=== PATIENT | male | born 1980 | race Caucasian/White ===

== ENCOUNTER 2020-04-11 02:39 | Outpatient (CLI) | payer MEDICAID, SELFPAY | END 2020-04-11 02:59 | PROVIDERS: PCP Family Medicine; Visit Provider Family Medicine | DX: Z79.899 Other long term (current) drug therapy (principal); Z13.6 Encounter for screening for cardiovascular disorders | CPT/HCPCS: 93005; 93010 ==

== ENCOUNTER 2022-09-05 17:14 | Emergency (ER) | payer MEDICAID, SELFPAY ==
--- NOTE | 2022-09-05 17:15 | DI.CT_ITS ---
Exam(s) CT CHEST/ABD/PEL WO CT THORACIC LUMBAR SPINE REC EXAM: CT CHEST/ABD/PEL WO CLINICAL HISTORY: left sided chest and upper abdomen pain s/p fall TECHNIQUE: Imaging Protocol: Axial computed tomography images with coronal and sagittal reformatted images were created and reviewed COMPARISON: None. FINDINGS: The examination is limited due to patient motion artifact. CHEST: Tracheobronchial tree: Patent where visualized. Pulmonary parenchyma: No consolidation or dominant measurable mass. No architectural distortion. Ther e are patchy ground-glass opacities seen in the left upper lobe which likely reflect contusions. Mediastinum and Bela: No dominant adenopathy or fluid collection. The esophagus is unremarkable. Thyroid gland: Unremarkable. Pleura: No effusion or pneumothorax. Heart: The heart is not dilated. No coronary artery calcifications are seen. No pericardial effusion. Aorta: Thoracic aorta non-dilated. Lymph nodes: Within normal limits. Bones:Within normal limits for the patient's age. There are nondisplaced fractures involving the pos terior medial aspects of the left 1st through 4th ribs. There also nondisplaced fractures involving the left transverse processes of the 3rd through 6th thoracic vertebra. Soft tissues: Unremarkable. CT thoracic spine recons: There is a deformity of the anterior aspect of the T8 vertebral body suspic ious for a minimally depressed compression fracture. ABDOMEN: Liver: Normal density. No measurable mass. Gallbladder and Biliary Tract: There is cholelithiasis. No biliary ductal dilatation. Pancreas: Normal density, no abnormal calcifications or inflammatory process. Spleen: Normal. Adrenals: No masses seen. Kidneys: Normal size, contour and axis. No radiodense stones or obstructive uropathy. No masses seen. Abdominal Aorta: Abdominal portion non-dilated. Bowel: No obstruction or bowel wall thickening. No evidence of appendicitis. Peritoneal Cavity: No ascites, collection or mesenteric inflammatory response. No free air. Lymph Nodes: Within normal limits. Bones: Within normal limits for the patient's age. Soft Tissues: Unremarkable. PELVIS: Bladder: Symmetric distention, no gross wall thickening. Reproductive Organs: Unremarkable as visualized. Lymph Nodes: Within normal limits. Bones: Within normal limits for the patient's age. CT lumbar spine recons: There is mild deformity of the anterior aspect of the L3 vertebral body suspi cious for nondisplaced fracture. This is best appreciated on the sagittal views of the lumbar spine. Similar findings are also seen in the anterior cortex of the L1 vertebral body. IMPRESSION: 1. Ground-glass opacities in the left upper lobe likely reflecting pulmonary contusions. 2. Nondisplaced fractures involving the posterior medial aspects of the left first through 4th ribs. 3. Nondisplaced left T3 through T6 transverse process fractures. 4. There are deformities seen at the anterior superior aspects of the T8, L1 and L3 vertebral body díaz spicious for fractures. No spinal compression is seen. 5. No acute abdominal process. 6. Findings were discussed with Dr. Sal at 8:10 a.m. on 09/06/2022. RADIATION DOSE DELIVERED: Total DLP DATA REPOSITORY: All CT scans at this facility are submitted to the National Radiology Data Registry (NRDR) Dose Index Registry (DIR) with the [employer] (ACR). RADIATION OPTIMIZATION: All CT scans at this facility use at least one of these dose optimization te chniques: automated exposure control; mA and/or kV adjustment per patient size (includes targeted exa ms where dose is matched to clinical indication); or iterative reconstruction.
--- NOTE | 2022-09-05 17:15 | DI.CT_ITS ---
Exam(s) CT HEAD CERVICAL SPINE WO EXAM: CT HEAD CERVICAL SPINE WO CLINICAL HISTORY: fall 40 feet, pain. TECHNIQUE: Imaging Protocol: Axial computed tomography images with coronal and sagittal reformatted images were created and reviewed COMPARISON: No exams were available for comparison FINDINGS: CT Head: Ventricles and Extra axial spaces: Normal in size and morphology for the patient's age. Hemorrhage: None. Cerebral parenchyma: Normal. Midline shift: None. Brainstem/Cerebellum: Normal. Calvarium: Normal. Visualized Paranasal sinuses/Mastoids: Clear. Soft Tissues: Unremarkable. CT Cervical Spine: Bones: No acute fracture or subluxation. Mildly displaced fractures are seen at the posterior aspects of the 1st, 2nd and 3rd left ribs. There also fractures involving the left transverse processes of the 3rd, 4th and 5th thoracic vertebra. Soft Tissues: Unremarkable. Lung Apices: There is a small ground-glass opacity in the left upper lobe. No apical pneumothorax. IMPRESSION: 1. No acute intracranial process. 2. No acute fracture or subluxation in the cervical spine. 3. There are fractures involving the posterior 1st through 3rd ribs and the 3rd through 5th left augustine sverse processes of the thoracic vertebra. 4. Ground-glass opacity in the left upper lobe which may represent a contusion. RADIATION DOSE DELIVERED: 973.91mGy.cm Total DLP DATA REPOSITORY: All CT scans at this facility are submitted to the National Radiology Data Registry (NRDR) Dose Index Registry (DIR) with the [employer] (ACR). RADIATION OPTIMIZATION: All CT scans at this facility use at least one of these dose optimization te chniques: automated exposure control; mA and/or kV adjustment per patient size (includes targeted exa ms where dose is matched to clinical indication); or iterative reconstruction.
[2022-09-05 17:18] VITALS: BP 162/120; PULSE 120; RESP 16; TEMP 37.6; O2SAT 96
--- NOTE | 2022-09-05 17:30 | DI.RAD_ITS ---
Exam(s) XR ANKLE RT COMPLETE EXAM: XR ANKLE RT COMPLETE CLINICAL HISTORY: pain s/p fall. TECHNIQUE: 2D digital imaging was performed of the right ankle. Three images were obtained. AP, la teral and oblique views were obtained. COMPARISON: No exams were available for comparison FINDINGS: BONES: There is an acute nondisplaced oblique fracture through the distal tibial diaphysis. No bony destructive lesion is seen. JOINTS: The ankle mortise is normally aligned. SOFT TISSUE: Normal. IMPRESSION: Nondisplaced distal tibial diaphyseal fracture. DATA REPOSITORY: RADIATION DOSE DELIVERED:
--- NOTE | 2022-09-05 17:30 | DI.RAD_ITS ---
Exam(s) XR SHOULDER LT COMPLETE 2+V EXAM: XR SHOULDER LT COMPLETE 2+V CLINICAL HISTORY: pain s/p fall. TECHNIQUE: 2D digital imaging was performed of the left shoulder. Four images were obtained. AP, G rashey, Y-view and axillary views were obtained. COMPARISON: No exams were available for comparison FINDINGS: BONES: The fractures of the left 2nd and 3rd ribs are seen. The patient's known thoracic transverse process and left rib fractures are best appreciated on the CT scan of the abdomen and pelvis from the same day. No bony destructive lesion is seen. Note is made of an os acromiale which is a normal kassie iant. JOINTS: No dislocation present. SOFT TISSUE: Normal. IMPRESSION: 1. No acute fracture of the left shoulder. 2. Left 2nd and 3rd rib fractures are identified on the plain films. DATA REPOSITORY: RADIATION DOSE DELIVERED:
--- NOTE | 2022-09-05 17:32 | ED.GENADUL_ITS ---
Discharge Plan Disposition Patient Disposition: HOME Condition: Stable Discharge Details Clinical Impression: Blunt trauma of multiple sites of trunk, Blunt head trauma, Closed fracture of transverse process of thoracic vertebra, Left rib fracture, Closed right tibial fracture Primary Care Provider: Shayla Yee ED Provider: Rico Martell Home Meds and New Rx's Prescriptions: New oxycodone 5 mg tablet 5 mg PO Q6H PRNQty: 10 0RF Discharge Instructions Instructions: Leg Fracture (ED) Additional Instructions: you were found to have small breaks in the upper back and also left sided rib fractures that will heal on their own you have a broken bone in the left leg, you need to keep weight off the leg and when sitting or laying down keep it elevated call orthopedics tomorrow to arrange follow up if you feel more ill, have severe worsening pain or new pain such as chest pain or abodmen pain return to the emergency department you can take tylenol and ibuprofen as well, follow dosing instructions on packaging Referrals: Abelino Howard MD [ [facility] STAFF PHYSICIAN] - Medical Decision Making 42 yo male who denies chronic medical problems comes in with complaints of multiple sites of body after a fall 4 days ago. 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 Denies loc and did not seek evaluation at that time. He comes in because he states he still has back, left shoulder and right ankle pain. He does state he has dislocated his left shoulder in the past and after his fall felt it was dislocated and his significant other popped it back in. He arrives caox4 gcs of 15. He has bruising on the left anterior chest with tenderness, left anterior shoulder tenderness though still has full rom, no distal arm tenderness or swelling and normal sensation and pulses. No pain or tenderness in the right arm or left leg. Does have some lateral malleolus tenderness in the left ankle with full rom and normal sensation and pulses. He has mild luq tenderness with deep palpation, no guarding or rebound. Has mid T and L spine tenderness, no visible or palpable deformities. No signs of trauma to the head, no c spine tenderness. Given the mechanism and locations of pain will obtain ct head, c spine, ct chest/abd/pelvis with t and l spine recons in addition to left shoulder and right ankle xrays ct head and c spine negative, has 1st through 4th left rib fractures, no ptx, and minimal left sided t3-t5 transverse process fractures. He does have a nondisplaced distal tibia fracture. He remains stable, intact distal sensation and pulses. Reviewed the case with audio visual collections coordinator orthopedist Dr. Howard and given it is nondisplaced can be treated with short leg posterior splint which I applied, and nonweight bearing and f/u with him next week. He remains stable and is comfortable with d/c, advised to f/u with ortho and return precautions given Differential Diagnosis Differential Diagnosis: fracture, contusion Imaging Data Radiologic Study: Attestation: I personally reviewed and interpreted this imaging study as follows: Imaging: X-Ray My impression: PROCEDURE INFORMATION: Exam: XR Right Ankle Exam date and time: 09/05/2022 5:47 PM Age: 42 years old Clinical indication: Injury or trauma; Other: Pain S/P fall 40 ft TECHNIQUE: Imaging protocol: Radiologic exam of the Right ankle. Views: 3 or more views. COMPARISON: No relevant prior studies available. FINDINGS: Bones/joints: Oblique fracture through the distal tibial diaphysis without displacement Soft tissues: Normal. IMPRESSION: Oblique distal tibial diaphysis fracture Radiologic Study #2: Attestation: I personally reviewed and interpreted this imaging study as follows: Imaging: X-Ray My impression: no acute findings shoulder xray Radiologic Study #3: Attestation: I personally reviewed and interpreted this imaging study as follows: Imaging: CT Scan Radiologist's impression: IMPRESSION: No acute intracranial abnormality. IMPRESSION: No acute cervical fracture Left 1st through 4th rib fractures without pneumothorax. Question minimal left upper lobe pulmonary contusion Radiologic Study #4: Attestation: I personally reviewed and interpreted this imaging study as follows: Imaging: CT Scan Radiologist's impression: PROCEDURE INFORMATION: Exam: CT Chest Without Contrast; Diagnostic Exam date and time: 09/05/2022 6:09 PM Age: 42 years old Clinical indication: Injury or trauma; Generalized; Blunt trauma (contusions or hematomas); Patient HX: Left sided chest and upper abdomen pain S/P fall TECHNIQUE: Imaging protocol: Diagnostic computed tomography of the chest without contrast. 3D rendering (Not supervised by radiologist): MIP and/or 3D reconstructed images were created by the technologist. COMPARISON: CT HEAD CERVICAL SPINE WO 09/05/2022 6:00 PM FINDINGS: Lungs: Minimal nodular densities and minimal ground-glass density in the left upper lobe No consolidation. No masses. Pleural spaces: Unremarkable. No pneumothorax. No pleural effusion. Heart: Unremarkable. No cardiomegaly. No pericardial effusion. Lymph nodes: Unremarkable. No enlarged lymph nodes. Vasculature: Unremarkable. No aortic aneurysm. Bones/joints: Left posterior 1st through 4th rib fractures Soft tissues: Unremarkable. IMPRESSION: Left 1st through 4th rib fractures without pneumothorax. IMPRESSION: No acute findings. Gallstones versus gallbladder wall calcifications Radiologic Study #5: Attestation: I personally reviewed and interpreted this imaging study as follows: Imaging: CT Scan Radiologist's impression: PROCEDURE INFORMATION: Exam: CT Thoracic Spine Without Contrast Exam date and time: 09/05/2022 6:09 PM Age: 42 years old Clinical indication: Injury or trauma; Fall; Blunt trauma (contusions or hematomas) TECHNIQUE: Imaging protocol: Computed tomography of the thoracic spine without contrast. Radiation optimization: All CT scans at this facility use at least one of these dose optimization techniques: automated exposure control; mA and/or kV adjustment per patient size (includes targeted exams where dose is matched to clinical indication); or iterative reconstruction. COMPARISON: CT HEAD CERVICAL SPINE WO 09/05/2022 6:00 PM FINDINGS: Bones/joints: Minimal fractures of the left T3 -T5 transverse processes. Normal alignment. No significant disc protrusion. No severe spinal canal stenosis. Soft tissues: Unremarkable. IMPRESSION: Minimal left-sided T3 through T5 transverse process fractures Left 1st through 4th posterior rib fractures IMPRESSION: No acute lumbar fracture Radiologic Study #6: Attestation: I personally reviewed and interpreted this imaging study as follows: Imaging: X-Ray Radiologist's impression: distal tibia fracture on tib/fib xray HPI General Date/Time Provider Initiated Documentation: 09/05/22 17:17 . Limitations to Documentation: no limitations . Information obtained by: patient . History of Present Illness 42 year old M presents to the emergency department with the chief complaint of fall out of a tree, left shoulder pain, described as moderate, Patient reports no radiation. Patient started experiencing this day(s) (4) and it has been constant. No relieving factors improve symptom(s), No exacerbating factors reported . Patient did receive the following treatments prior to arrival, none Related Data Home Medications Medication Instructions Recorded Confirmed oxycodone 5 mg tablet 5 mg PO Q6H PRN #10 tabs 09/05/22 Previous Rx's Medication Instructions Recorded oxycodone 5 mg tablet 5 mg PO Q6H PRN #10 tabs 09/05/22 Allergies Allergy/AdvReac Type Severity Reaction Status Date / Time No Known Allergies Allergy Unverified 09/05/22 17:39 General Stated Complaint: Trauma ELIZABETH: 3 Review of Systems All systems reviewed & are unremarkable except as noted in HPI and below Constitutional Constitutional: Denies chills, Denies fever(s) and Denies weakness Eyes Eyes: Denies loss of vision Cardiovascular Cardiovascular: Denies dyspnea Respiratory Respiratory: Denies cough and Denies dyspnea Gastrointestinal Gastrointestinal: Denies nausea and Denies vomiting Musculoskeletal Musculoskeletal: Denies joint swelling Neurologic Neurologic: Denies loss of vision and Denies weakness PFSH All Active Problems (Updated 09/05/22 @ 20:15 by Rico Martell MD) Blunt trauma of multiple sites of trunk (Acute) Blunt head trauma (Acute) Closed fracture of transverse process of thoracic vertebra (Acute) Left rib fracture (Acute) Closed right tibial fracture (Acute) Social History Smoking/Tobacco Use Status: Current every day Tobacco Type: e-cigarettes Smoking risk assessment performed?: Yes Alcohol Intake: current Alcohol Intake frequency: a few times a month Alcohol type: beer Drug use: Occasionally Substance use type: marijuana Do you feel safe at home: Yes Do you feel safe in your relationship?: Yes Exam Const General: no acute distress Orientation: alert HENMT Head: normal to inspection Ears: external ears normal General nose exam: external nose normal Mouth: moist mucous membranes Eyes General: appearance normal, both eyes and all related structures Neck Neck: normal visual inspection Resp Effort & Inspection: normal respiratory effort and able to speak in complete sentences Cardio Rate: regular rate GI Palpation: soft and tender Skin General skin exam: no rashes or lesions noted Neuro General: patient alert and patient oriented x3 Extrem General: normal to inspection, full ROM and capillary refill normal Psych Mental Status: mental status grossly normal Course Vital Signs Vital signs: Vital Signs Temperature 37.6 C 09/05/22 17:18 Pulse 120 H 09/05/22 17:18 Respiratory Rate 16 09/05/22 17:18 Blood Pressure 162/120 H 09/05/22 17:18 Pulse Oximetry 96 09/05/22 17:18 Temperature 37.6 C 09/05/22 17:18 Temperature Source Skin 09/05/22 17:18 Pulse 120 H 09/05/22 17:18 Respiratory Rate 16 09/05/22 17:18 Blood Pressure 162/120 H 09/05/22 17:18 Blood Pressure Position Sitting 09/05/22 17:18 Pulse Oximetry 96 09/05/22 17:18 Oxygen Delivery Method Room Air 09/05/22 17:18 Oxygen Flow Rate 0 09/05/22 17:18 Comment 09/05/22 17:18
--- NOTE | 2022-09-05 18:05 | DI.VRAD_ITS ---
PROCEDURE INFORMATION: Exam: XR Right Ankle Exam date and time: 09/05/2022 5:47 PM Age: 42 years old Clinical indication: Injury or trauma; Other: Pain S/P fall 40 ft TECHNIQUE: Imaging protocol: Radiologic exam of the Right ankle. Views: 3 or more views. COMPARISON: No relevant prior studies available. FINDINGS: Bones/joints: Oblique fracture through the distal tibial diaphysis without displacement Soft tissues: Normal. IMPRESSION: Oblique distal tibial diaphysis fracture Dictated and Authenticated by: Moiz Briggs MD. Ordering:RAMESH Gómez MD
--- NOTE | 2022-09-05 18:05 | DI.VRAD_ITS ---
PROCEDURE INFORMATION: Exam: XR Left Shoulder Exam date and time: 09/05/2022 5:50 PM Age: 42 years old Clinical indication: Injury or trauma; Other: Pain S/P fall 40 ft TECHNIQUE: Imaging protocol: Radiologic exam of the Left shoulder. Views: 2 or more views. COMPARISON: No relevant prior studies available. FINDINGS: Bones/joints: Chronic deformity of the left clavicle. No acute fracture or dislocation Soft tissues: Normal. IMPRESSION: No acute findings. Dictated and Authenticated by: Moiz Briggs MD. Ordering:RAMESH Gómez MD
--- NOTE | 2022-09-05 18:22 | DI.VRAD_ITS ---
PROCEDURE INFORMATION: Exam: CT Head Without Contrast Exam date and time: 09/05/2022 6:00 PM Age: 42 years old Clinical indication: Injury or trauma; Other: Fall 40 feet, pain TECHNIQUE: Imaging protocol: Computed tomography of the head without contrast. COMPARISON: No relevant prior studies available. FINDINGS: Brain: Mild volume loss X. No hemorrhage. Unremarkable white matter. No mass effect. Cerebral ventricles: No ventriculomegaly. Paranasal sinuses: Visualized sinuses are unremarkable. No fluid levels. Mastoid air cells: Visualized mastoid air cells are well aerated. Bones/joints: Unremarkable. No acute fracture. Soft tissues: Unremarkable. IMPRESSION: No acute intracranial abnormality. PROCEDURE INFORMATION: Exam: CT Cervical Spine Without Contrast Exam date and time: 09/05/2022 6:00 PM Age: 42 years old Clinical indication: Injury or trauma; Other: Fall 40 feet, pain TECHNIQUE: Imaging protocol: Computed tomography of the cervical spine without contrast. COMPARISON: CR XR SHOULDER LT COMPLETE 2+V 09/05/2022 5:50 PM FINDINGS: Bones/joints: No acute cervical fracture. Loss of cervical lordosis is presumably on a degenerative basis.No significant disc protrusion. No severe spinal canal stenosis. Left 1st through 4th rib fractures Lungs: Question minimal ground-glass opacity in the left upper lobe Soft tissues: Unremarkable. IMPRESSION: No acute cervical fracture Left 1st through 4th rib fractures without pneumothorax. Question minimal left upper lobe pulmonary contusion Dictated and Authenticated by: Moiz Briggs MD. Ordering:RAMESH Gómez MD
--- NOTE | 2022-09-05 18:25 | DI.VRAD_ITS ---
PROCEDURE INFORMATION: Exam: CT Chest Without Contrast; Diagnostic Exam date and time: 09/05/2022 6:09 PM Age: 42 years old Clinical indication: Injury or trauma; Generalized; Blunt trauma (contusions or hematomas); Patient HX: Left sided chest and upper abdomen pain S/P fall TECHNIQUE: Imaging protocol: Diagnostic computed tomography of the chest without contrast. 3D rendering (Not supervised by radiologist): MIP and/or 3D reconstructed images were created by the technologist. COMPARISON: CT HEAD CERVICAL SPINE WO 09/05/2022 6:00 PM FINDINGS: Lungs: Minimal nodular densities and minimal ground-glass density in the left upper lobe No consolidation. No masses. Pleural spaces: Unremarkable. No pneumothorax. No pleural effusion. Heart: Unremarkable. No cardiomegaly. No pericardial effusion. Lymph nodes: Unremarkable. No enlarged lymph nodes. Vasculature: Unremarkable. No aortic aneurysm. Bones/joints: Left posterior 1st through 4th rib fractures Soft tissues: Unremarkable. IMPRESSION: Left 1st through 4th rib fractures without pneumothorax. Minimal ground-glass and nodular densities in the left upper lobe which may be infectious/inflammatory. Minimal contusion not excluded. Consider short-term follow-up CT scan to assess for resolution PROCEDURE INFORMATION: Exam: CT Abdomen And Pelvis Without Contrast Exam date and time: 09/05/2022 6:09 PM Age: 42 years old Clinical indication: Injury or trauma; Generalized; Blunt trauma (contusions or hematomas); Patient HX: Left sided chest and upper abdomen pain S/P fall TECHNIQUE: Imaging protocol: Computed tomography of the abdomen and pelvis without contrast. 3D rendering (Not supervised by radiologist): MIP and/or 3D reconstructed images were created by the technologist. COMPARISON: No relevant prior studies available. FINDINGS: Liver: Normal. No mass. Gallbladder and bile ducts: Gallbladder wall calcifications versus calcified gallstones. No ductal dilation. Pancreas: Normal. No ductal dilation. Spleen: Normal. No splenomegaly. Adrenal glands: Normal. No mass. Kidneys and ureters: Normal. No hydronephrosis. Stomach and bowel: Unremarkable. No obstruction. No mucosal thickening. Appendix: No evidence of appendicitis. Intraperitoneal space: Unremarkable. No free air. No significant fluid collection. Vasculature: Unremarkable. No abdominal aortic aneurysm. Lymph nodes: Unremarkable. No enlarged lymph nodes. Urinary bladder: Unremarkable as visualized. Reproductive: Unremarkable as visualized. Bones/joints: Degenerative changes at the lumbosacral junction No acute fracture. Soft tissues: Unremarkable. IMPRESSION: No acute findings. Gallstones versus gallbladder wall calcifications Dictated and Authenticated by: Moiz Briggs MD. Ordering:RAMESH Gómez MD
--- NOTE | 2022-09-05 18:49 | DI.VRAD_ITS ---
PROCEDURE INFORMATION: Exam: CT Thoracic Spine Without Contrast Exam date and time: 09/05/2022 6:09 PM Age: 42 years old Clinical indication: Injury or trauma; Fall; Blunt trauma (contusions or hematomas) TECHNIQUE: Imaging protocol: Computed tomography of the thoracic spine without contrast. Radiation optimization: All CT scans at this facility use at least one of these dose optimization techniques: automated exposure control; mA and/or kV adjustment per patient size (includes targeted exams where dose is matched to clinical indication); or iterative reconstruction. COMPARISON: CT HEAD CERVICAL SPINE WO 09/05/2022 6:00 PM FINDINGS: Bones/joints: Minimal fractures of the left T3 -T5 transverse processes. Normal alignment. No significant disc protrusion. No severe spinal canal stenosis. Soft tissues: Unremarkable. IMPRESSION: Minimal left-sided T3 through T5 transverse process fractures Left 1st through 4th posterior rib fractures PROCEDURE INFORMATION: Exam: CT Lumbar Spine Without Contrast Exam date and time: 09/05/2022 6:09 PM Age: 42 years old Clinical indication: Injury or trauma; Fall; Blunt trauma (contusions or hematomas) TECHNIQUE: Imaging protocol: Computed tomography of the lumbar spine without contrast. Radiation optimization: All CT scans at this facility use at least one of these dose optimization techniques: automated exposure control; mA and/or kV adjustment per patient size (includes targeted exams where dose is matched to clinical indication); or iterative reconstruction. COMPARISON: No relevant prior studies available. FINDINGS: Bones/joints: No acute fracture. Alignment is grossly maintained. Central canal stenosis most pronounced at L4-L5. Moderate to severe foraminal stenosis at L5-S1 Soft tissues: Unremarkable. IMPRESSION: No acute lumbar fracture Dictated and Authenticated by: Moiz Briggs MD. Ordering:RAMESH Gómez MD
--- NOTE | 2022-09-05 19:15 | DI.RAD_ITS ---
Exam(s) XR TIB/FIB RT EXAM: XR TIB/FIB RT CLINICAL HISTORY: pain s/p fall. TECHNIQUE: 2D digital imaging was performed of the right tibia and fibula. Two images were obtained. AP and lateral views were obtained. COMPARISON: No exams were available for comparison FINDINGS: BONES: There is a nondisplaced oblique fracture of the distal tibia. The fracture begins in the dist al diaphysis but extends inferiorly into the metaphysis. Articular extension cannot be excluded. No bony destructive lesion is seen. Findings of a prior ACL repair. SOFT TISSUE: Normal. IMPRESSION: Nondisplaced distal right tibial fracture. A CT scan may be obtained for further characterization of the fracture and to assess possible extension into the articular surface. DATA REPOSITORY: RADIATION DOSE DELIVERED:
--- NOTE | 2022-09-05 19:36 | DI.VRAD_ITS ---
PROCEDURE INFORMATION: Exam: XR Right Tibia and Fibula Exam date and time: 09/05/2022 7:31 PM Age: 42 years old Clinical indication: Injury or trauma; Fall; Blunt trauma; Lower leg; Right; Prior surgery; Surgery date: 6+ months; Surgery type: Acl repair TECHNIQUE: Imaging protocol: Radiologic exam of the Right tibia and fibula. Views: 2 views. COMPARISON: CR XR ANKLE RT COMPLETE 09/05/2022 5:47 PM FINDINGS: Bones/joints: Post ACL repair in the knee. Distal tibial fracture redemonstrated without displacement Soft tissues: Normal. IMPRESSION: Distal tibial fracture redemonstrated No proximal knee fracture Post ACL repair Dictated and Authenticated by: Moiz Briggs MD. Ordering:RAMESH Gómez MD
[2022-09-05] MEDS: oxyCODONE 5 MG TAB PO (19:48)
[2022-09-05 20:30] VITALS: BP 123/72; PULSE 78; RESP 20; TEMP 36.6; O2SAT 96
--- NOTE | 2022-09-06 09:05 | W.ED.FU ---
Follow Up Plan: Per in-house radiologist read of the CT thoracic and lumbar spine recons, there is a mild compression fracture of T8, L1 and L3 but no displacement, retropulsion or spinal cord compression. Case discussed and imaging reviewed with Dr. Howard who notes that these fractures are hairline and no other acute recommendations other than pain control and rest and to return with any neurologic symptoms. Patient called on number provided and informed of these findings. He is advised to follow-up with his primary care doctor and Dr. Howard for reevaluation of his right leg fracture. Advised to return to the ED if he develops any neurologic symptoms.
--- NOTE | 2022-09-06 18:29 | NUR.NOTE ---
Nursing Note: Gracie Pires called verifying the oxycodone prescription and the diagnosis for it. I read the prescription to her and gave her the discharge diagnosis' to her. She was all set.
== END 2022-09-05 20:39 | disposition home or self-care (01) ==
PROVIDERS: Emergency Provider Emergency Medicine; PCP Nurse Practitioner Family
DX: S22.031A Stable burst fracture of third thoracic vertebra, initial encounter for closed fracture (principal); S22.041A Stable burst fracture of fourth thoracic vertebra, initial encounter for closed fracture; S22.051A Stable burst fracture of T5-T6 vertebra, initial encounter for closed fracture; S22.42XA Multiple fractures of ribs, left side, initial encounter for closed fracture; S82.201A Unspecified fracture of shaft of right tibia, initial encounter for closed fracture; S09.90XA Unspecified injury of head, initial encounter; F17.290 Nicotine dependence, other tobacco product, uncomplicated; W14.XXXA Fall from tree, initial encounter; W22.8XXA Striking against or struck by other objects, initial encounter; Y93.H2 Activity, gardening and landscaping
CPT/HCPCS: 71250; 99284; 70450; 72125; 73030; 73590; 73610; 74176

== ENCOUNTER 2022-09-12 10:41 | Outpatient (CLI) | payer MEDICAID, SELFPAY ==
--- NOTE | 2022-09-12 10:30 | DI.RAD_ITS ---
Exam(s) XR SHOULDER LT COMPLETE 2+V EXAM: XR SHOULDER LT COMPLETE 2+V CLINICAL HISTORY: shoulder pain. TECHNIQUE: 2D digital imaging was performed. COMPARISON: CR,XR XR SHOULDER LT COMPLETE 2+V from 09/05/2022 FINDINGS: Two views: No evidence of fracture or dislocation glenohumeral joint level and no degenerative changes at this l evel. On the Grashey view there is subtle separation of the AC joint but this may be projectional. The axi al view does not exhibit similar findings. No evidence of os acromiale. IMPRESSION: As above. DATA REPOSITORY: RADIATION DOSE DELIVERED:
--- NOTE | 2022-09-12 10:30 | DI.RAD_ITS ---
Exam(s) XR TIB/FIB RT EXAM: XR TIB/FIB RT CLINICAL HISTORY: tib fx f/u. TECHNIQUE: 2D digital imaging was performed. COMPARISON: CR,XR XR TIB/FIB RT from 09/05/2022 FINDINGS: Two views: Again noted is the thin nondisplaced oblique fracture line in the distal half of the tibia, unchanged . On the lateral view the fracture line appears to be extending caudally and possible reaching the a rticular surface of the ankle joint. If clinically indicated this could be further study with CT sca n. Again noted is evidence of prior ACL knee surgery. IMPRESSION: DATA REPOSITORY: RADIATION DOSE DELIVERED:
== END 2022-09-12 10:42 | disposition home or self-care (01) ==
LOC: DIORS 10:41
PROVIDERS: PCP Nurse Practitioner Family; Referring Provider Nurse Practitioner Family; Visit Provider Student in an Organized Health Care Education/Training Program
DX: S82.201D Unspecified fracture of shaft of right tibia, subsequent encounter for closed fracture with routine healing (principal); M25.511 Pain in right shoulder; X58.XXXD Exposure to other specified factors, subsequent encounter
CPT/HCPCS: 73030; 73590

== ENCOUNTER → 2022-09-20 11:40 | Outpatient (CLI) | payer MEDICAID, SELFPAY ==
--- NOTE | 2022-09-20 | DI.RAD_ITS ---
Exam(s) XR RIBS LT PA CHEST 3V EXAM: XR RIBS LT PA CHEST 3V CLINICAL HISTORY: HX FRACTURE Z87.[address] ON 09/05/22, SHIFTING CLICKING STABBIBG PAIN TECHNIQUE: 2D digital imaging was performed. Images are obtained. COMPARISON: CT CT CHEST/ABD/PEL WO from 09/05/[address] THORACIC LUMBAR SPINE REC from 09/05/2022 FINDINGS: MEDIASTINUM: Normal. HEART: Normal. PULMONARY VASCULATURE: Normal. LUNGS: Clear. PLEURAL SPACE: No pleural effusion or pneumothorax. BONE:Within normal limits for the patient's age. LEFT RIBS: The fracture of the posterior aspect of the left 2nd rib is visualized. This was present on the prior CT scan from 09/05/2022. The other known left rib and transverse process fractures are best appreciated on the CT scan. No new rib fractures are identified. OTHER FINDINGS:Normal. IMPRESSION: 1. No acute pulmonary findings. 2. The patient's known left 2nd rib fracture is visualized and is grossly unchanged. No new rib frac tures are seen. DATA REPOSITORY: RADIATION DOSE DELIVERED:
== END ==
PROVIDERS: PCP Nurse Practitioner Family; Visit Provider Nurse Practitioner Family
DX: S22.32XD Fracture of one rib, left side, subsequent encounter for fracture with routine healing (principal); X58.XXXD Exposure to other specified factors, subsequent encounter
CPT/HCPCS: 71101

== ENCOUNTER 2022-10-10 11:48 | Outpatient (CLI) | payer MEDICAID, SELFPAY ==
--- NOTE | 2022-10-10 11:46 | DI.RAD_ITS ---
Exam(s) XR ANKLE RT COMPLETE EXAM: XR ANKLE RT COMPLETE CLINICAL HISTORY: ankle pain. TECHNIQUE: 2D digital imaging was performed. Three views. COMPARISON: CR,XR XR ANKLE RT COMPLETE from 09/05/2022 FINDINGS: There has been slight callus formation around the previously noted distal tibial fracture. No distal fibular fracture or ankle mortise widening is seen. There is no talar dome defect. IMPRESSION: healing nondisplaced fracture of the distal tibia. DATA REPOSITORY: RADIATION DOSE DELIVERED:
--- NOTE | 2022-10-10 11:50 | DI.RAD_ITS ---
Exam(s) XR SHOULDER LT 1V EXAM: XR SHOULDER LT 1V CLINICAL HISTORY: left shoulder pain. TECHNIQUE: 2D digital imaging was performed. Three views. COMPARISON: CR,XR XR SHOULDER LT COMPLETE 2+V from 09/05/[address] CHEST/ABD/PEL WO from 09/05/[address] THORACIC LUMBAR SPINE REC from 09/05/2022 CR XR SHOULDER LT COMPLETE 2+V from 09/12/2022 CR XR RIBS LT PA CHEST 3V from 09/20/2022 FINDINGS: BONES: There are bony densities seen projecting beneath the distal 3rd of the clavicle which were not apparent on the previous exam. This is consistent soft tissue calcification. No acute fracture is present. No bony destructive lesion is seen. JOINTS: No dislocation present. SOFT TISSUE: Normal. IMPRESSION: Development of calcifications beneath the distal clavicle. DATA REPOSITORY: RADIATION DOSE DELIVERED:
== END 2022-10-10 11:49 | disposition home or self-care (01) ==
LOC: DIORS 11:48
PROVIDERS: PCP Nurse Practitioner Family; Referring Provider Nurse Practitioner Family; Visit Provider Student in an Organized Health Care Education/Training Program
DX: M25.512 Pain in left shoulder (principal)
CPT/HCPCS: 73020; 73610

== ENCOUNTER 2022-12-04 11:30 | Outpatient (CLI) | payer MEDICAID, SELFPAY ==
--- NOTE | 2022-12-04 11:15 | DI.RAD_ITS ---
Exam(s) XR ANKLE RT COMPLETE EXAM: XR ANKLE RT COMPLETE CLINICAL HISTORY: TIB/FIB FX F/U. TECHNIQUE: 2D digital imaging was performed of the right ankle. Three images were obtained. AP, la teral and oblique views were obtained. COMPARISON: CR XR ANKLE RT COMPLETE from 10/10/2022 FINDINGS: BONES: No acute fracture is present. No bony destructive lesion is seen. The distal tibial fracture has shown significant interval healing. JOINTS: The ankle mortise is normally aligned. SOFT TISSUE: Normal. IMPRESSION: The distal tibial fracture has shown significant interval healing. DATA REPOSITORY: RADIATION DOSE DELIVERED:
--- NOTE | 2022-12-04 11:15 | DI.RAD_ITS ---
Exam(s) XR SHOULDER LT 1V EXAM: XR SHOULDER LT 1V CLINICAL HISTORY: LEFT SHOULDER F/U. TECHNIQUE: 2D digital imaging was performed of the left shoulder. One images were obtained. AP, Gr ashey, Y-view and axillary views were obtained. COMPARISON: CR XR SHOULDER LT COMPLETE 2+V from 09/12/2022 CR XR SHOULDER LT 1V from 10/10/2022 FINDINGS: BONES: No acute fracture is present. No bony destructive lesion is seen. There again seen postsurgica l changes with resection of the distal clavicle. Soft tissue calcifications are seen inferior to the clavicle. JOINTS: No dislocation present. SOFT TISSUE: Normal. IMPRESSION: Stable postsurgical changes of the clavicle. DATA REPOSITORY: RADIATION DOSE DELIVERED:
== END 2022-12-04 11:31 | disposition home or self-care (01) ==
LOC: DIORS 11:30
PROVIDERS: PCP Nurse Practitioner Family; Referring Provider Nurse Practitioner Family; Visit Provider Student in an Organized Health Care Education/Training Program
DX: S82.201D Unspecified fracture of shaft of right tibia, subsequent encounter for closed fracture with routine healing (principal); S43.102D Unspecified dislocation of left acromioclavicular joint, subsequent encounter; X58.XXXD Exposure to other specified factors, subsequent encounter
CPT/HCPCS: 73020; 73610

== ENCOUNTER 2023-07-22 15:17 | Emergency (ER) | payer MEDICAID, SELFPAY ==
[2023-07-22 15:20] VITALS: BP 133/70; PULSE 86; RESP 14; TEMP 36.6; O2SAT 96
[2023-07-22] MEDS: Tetracaine 0.5% 4 ML BTL (15:26)
[2023-07-22] MEDS: Fluorescein STRIPS 100/BOX 1 MG (15:26)
--- NOTE | 2023-07-22 16:00 | ED.GENADUL_ITS ---
Discharge Plan Disposition Patient Disposition: Home Condition: Good Discharge Details Clinical Impression: Abrasion, corneal Primary Care Provider: Ana Ulrich ED Provider: Genevieve Vargas Home Meds and New Rx's Prescriptions: Continued methadone [Methadone Intensol] 10 mg/mL concentrate 160 mg PO DAILY Discharge Instructions Instructions: Ofloxacin (Into the eye), Corneal Abrasion (ED) Additional Instructions: No foreign body was noted. However, there was an abrasion, maybe from previous foreign body or wearing your contacts at night. During waking hours, please put 2 drops into your right eye with the Ofloxacin antibiotic drops given every 30 minutes for the next 2 days. During the night, try to do this every 6 hours. AFter the first 2 days, you may put these in every 4 hours. Please call your customer support associate and follow up with them in the next 2-3 days. Please do not wear contacts until cleared by them and make sure you have a new/clear pair. If you develop fevers/chills, increased pain, discharge or other new/worsening symptoms please seek care urgently once again. Referrals: Ana Ulrich [Primary Care Provider] - Discharge Data Discharge Date/Time-TO BE ENTERED AT DEPARTURE: 07/22/23 16:19 Medical Decision Making Patient is an otherwise healthy 43 year old male, tetanus UTD, presenting with c/c of FB sensation and pain/tearing to right eye x 2 days. 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 Reports that he wears contacts and often sleeps in them, even though he should not. Denies any discharge. No visual changes. Denies GROVES, fevers/chills, systemic symptoms. Has flushed the eye. Tdap was within last 2 years per patient. On exam, patient has injected left eye. No visual changes. Some clear tearing, no purulent discharge. No FB noted on naked eye or with slit lamp. Small circular abrasion noted just under the pupil. No retained FB is noted. Everted the lids, no retained FB noted. Advised against use of contacts. As it is not totally clear how this occured will cover for pseudomonas coverage as well. Certainly considered infection. He will use glasses andstay away from his contacts for the time being. He has local customer support associate and will call to schedule appointment in the next 2 days. All of his questions and concerns were addressed, he is in agreement with this plan. HPI General Date/Time Provider Initiated Documentation: 07/22/23 15:19 . Limitations to Documentation: no limitations . Information obtained by: patient and RN notes reviewed . History of Present Illness 43 year old M presents to the emergency department with the chief complaint of right eye pain, foreign body sensation, described as moderate, with intensity rated at 6. Quality is described as other (FB sensation), and is localized to the eyes. Patient reports no radiation. Patient started experiencing this day(s) (2) and it has been constant. No relieving factors improve symptom(s), No exacerbating factors reported . Patient notes no other symptoms.. Patient did receive the following treatments prior to arrival, none Related Data Home Medications Medication Instructions Recorded Confirmed methadone 10 mg/mL oral 160 mg PO DAILY 10/10/22 07/22/23 concentrate (Methadone Intensol) Allergies Allergy/AdvReac Type Severity Reaction Status Date / Time No Known Allergies Allergy Unverified 07/22/23 15:26 General Stated Complaint: EyeProblem ELIZABETH: 4 Review of Systems Constitutional Constitutional: Reports as per HPI, Denies fever(s) and Denies headache(s) Eyes Eyes: Reports as per HPI ENT Ears, Nose, Mouth, and Throat: Denies headache(s) Cardiovascular Cardiovascular: Reports as per HPI and Denies lightheadedness Respiratory Respiratory: Denies cough Integumentary/Breasts Skin/Breast: Reports as per HPI, Denies rash, Denies skin pain and Denies skin swelling Neurologic Neurologic: Denies headache(s) PFSH All Active Problems (Updated 07/22/23 @ 16:03 by NICOL Orourke) Abrasion, corneal (Acute) Closed right tibial fracture (Acute ~09/01/22) No-show for appointment (Acute) Separation of left acromioclavicular joint (Acute ~08/2022) Medical History (Updated 07/22/23 @ 16:03 by NICOL Orourke) Attention deficit Back pain Constipation History of head injury History of testicular mass Paresthesia of both hands Social History Smoking/Tobacco Use Status: Current every day Tobacco Type: e-cigarettes Smoking risk assessment performed?: Yes Alcohol Intake: current Alcohol Intake frequency: a few times a month Alcohol type: beer Drug use: Occasionally Substance use type: marijuana Current gender identity: male Do you feel safe at home: Yes Do you feel safe in your relationship?: Yes Exam Const General: cooperative, healthy appearing, uncomfortable (squinting right eye, using sunglasses), no acute distress, well developed and well groomed Nutritional Appearance: average body habitus and well nourished Orientation: alert, awake and oriented x3 HENMT Head: normal to inspection, normocephalic and atraumatic Ears: hearing grossly normal bilaterally and external ears normal General nose exam: external nose normal and nares normal Face and sinus: normal facial exam and face symmetric Mouth: oral mucosae normal, lip normal and moist mucous membranes Eyes Visual Murray: normal visual murray by confrontation Alignment and Position: alignment normal and position normal Periorbital: periorbital findings normal Eyelids: eyelids normal Conjunctivae: conjunctival abnormality right conjunctival injection Cornea: corneas abnormal on the right fluorescein used and abrasion and fluorescein used Pupils: PERRL, normal by confrontation and accommodation normal EOM: EOM intact bilaterally Resp Effort & Inspection: normal respiratory effort, able to speak in complete sentences and no respiratory distress Skin General skin exam: no rashes or lesions noted Neuro General: patient alert, patient awake and patient oriented x3 Cranial Nerves: CN's II-XI intact bilaterally Cognition: normal cognition Speech: speech normal Gait: normal gait Course Vital Signs Vital signs: Vital Signs Temperature 36.6 C 07/22/23 15:20 Pulse 86 07/22/23 15:20 Respiratory Rate 14 07/22/23 15:20 Blood Pressure 133/70 07/22/23 15:20 Pulse Oximetry 96 07/22/23 15:20 Temperature 36.6 C 07/22/23 15:20 Temperature Source Skin 07/22/23 15:20 Pulse 86 07/22/23 15:20 Respiratory Rate 14 07/22/23 15:20 Respiratory Effort Normal 07/22/23 15:27 Blood Pressure 133/70 07/22/23 15:20 Blood Pressure Position Sitting 07/22/23 15:20 Pulse Oximetry 96 07/22/23 15:20 Oxygen Delivery Method Room Air 07/22/23 15:20 Oxygen Flow Rate 0 07/22/23 15:20 Pain Level 6 07/22/23 15:20 Comment flushed eye 07/22/23 15:20
[2023-07-22] MEDS: Ciprofloxacin 0.3% 2.5 ML BTL OD (16:16)
== END 2023-07-22 16:19 | disposition home or self-care (01) ==
PROVIDERS: Emergency Provider Physician Assistant; PCP Nurse Practitioner Family
DX: S05.01XA Injury of conjunctiva and corneal abrasion without foreign body, right eye, initial encounter (principal); X58.XXXA Exposure to other specified factors, initial encounter
CPT/HCPCS: 99283

== ENCOUNTER 2024-01-13 09:31 | Emergency (ER) | payer MEDICAID, SELFPAY ==
[2024-01-13 09:35] VITALS: BP 180/106; PULSE 93; RESP 20; TEMP 37.1; O2SAT 99
--- NOTE | 2024-01-13 10:00 | RT.EKG_ITS ---
APPROVED REPORT Exam: Resting ECG Reason for Exam: Methadone withdrawal Patient Location: E HR:64 bpm ECG Measurements Heart Rate 64 AXIS AR 119 P 51 QRSd 99 QRS 91 QT 411 T 60 QTc 420 Conclusion Sinus rhythm...normal P axis, V-rate 60- 99 Ventricular premature complex...V complex w/ short R-R interval Narrow complex normal sinus rhythm at a rate of 64. Normal axis. QTc within normal limits. Mildly shortened AR with 119 ms. No obvious delta wave. No acute injury pattern. No prior for comparison.
[2024-01-13 10:02] VITALS: RESP 20
[2024-01-13] MEDS: Normal Saline 1,000 ML 1000 ML IV (10:28)
[2024-01-13 10:40] LABS: Abs Immature Grans 0.07 10^3/uL (0.0-0.06); Absolute Basophil Count 0.02 10^3/uL (0.0-0.2); Absolute Lymphocyte Count 1.48 10^3/uL (1.2-3.4); Basophils % 0.2; HCT 44.5 % (40.0-50.0); HGB 15.7 g/dL (13.5-17.5); Immature Grans % 0.6; Lymphocytes % 12.1; MCH 29.6 pg (27.0-33.0); MCHC 35.3 % (32.0-36.0); MCV 84 fL (80-95); Monocytes % 6.4; Neutrophils % 80.7; Platelet Count 284 10^3/uL (130-400); RBC 5.31 10^6/uL (4.36-5.78); RDW-SD 36.1 fL; WBC 12.27 10^3/uL (4.4-10.8)
[2024-01-13 10:41] LABS: Absolute Monocyte Count 0.79 10^3/uL (0.1-0.8)
[2024-01-13] MEDS: Methadone Liquid 10 MG/ML 100 MG PO (10:55)
[2024-01-13 10:57] LABS: ALT 39 U/L (16-63); AST 20 U/L (15-37); Albumin 4.2 g/dL (3.4-5.0); Alkaline Phosphatase 104 U/L (46-116); Anion Gap 7.2 mmol/L (3-11); BUN 16 mg/dL (7-18); Bilirubin, Total 0.4 mg/dL (0.2-1.0); CO2 31.8 mmol/L (21.0-32.0); CREATININE 0.9 mg/dL (0.70-1.30); Calcium 9.9 mg/dL (8.5-10.1); Chloride 106 mmol/L (98-107); Estimated GFR 109.36 (mL/min/1.73m2); Glucose 143 mg/dL (74-106); Lipase 19 U/L (16-77); Magnesium 2.3 mg/dL (1.8-2.4); Potassium 3.4 mmol/L (3.5-5.1); Sodium 145 mmol/L (136-145)
[2024-01-13] MEDS: Potassium Chloride 20 MEQ TABCR PO (11:34)
--- NOTE | 2024-01-13 11:54 | ED.GENADUL_ITS ---
Discharge Plan Disposition Patient Disposition: Home Discharge Details Clinical Impression: Methadone withdrawal Primary Care Provider: Ana Ulrich ED Provider: Dillon Stanton Home Meds and New Rx's Prescriptions: No Action No Known Home Meds Discharge Instructions Instructions: Opioid Withdrawal (ED) Additional Instructions: Please follow-up with the [facility] [place] clinic for resumption of your methadone dosing and long-term plan. Return to the emergency department for any new or significant worsening of condition otherwise follow-up with primary care provider as needed for other additional medical needs Referrals: Ana Ulrich [Primary Care Provider] - Discharge Data Discharge Date/Time-TO BE ENTERED AT DEPARTURE: 01/13/24 12:32 HPI General Mode of arrival: ambulatory . Date/Time Provider Initiated Documentation: 01/13/24 09:48 . Limitations to Documentation: no limitations . Information obtained by: patient and RN notes reviewed . History of Present Illness 43 year old M presents to the emergency department with the chief complaint of Methadone withdrawals, described as severe, Patient started experiencing this day(s) (4) and it has been constant. No relieving factors improve symptom(s), Medication worsens symptoms (Last dose of methadone 5 days ago) . Patient did receive the following treatments prior to arrival, none Related Data Home Medications Medication Instructions Recorded Confirmed Unknown [No Known Home Meds] 01/13/24 01/13/24 Allergies Allergy/AdvReac Type Severity Reaction Status Date / Time No Known Allergies Allergy Unverified 01/13/24 09:38 General Stated Complaint: DrugWithdr/MAT ELIZABETH: 4 Review of Systems Constitutional Constitutional: Reports chills and Reports malaise Cardiovascular Cardiovascular: Denies chest pain and Denies dyspnea Respiratory Respiratory: Denies dyspnea Gastrointestinal Gastrointestinal: Denies abdominal pain, Denies diarrhea, Reports nausea and Denies vomiting Musculoskeletal Musculoskeletal: Reports myalgias and Reports muscle cramps Integumentary/Breasts Skin/Breast: Denies rash Psychiatric Psychiatric: Reports irritability and Reports other (Agitation) Exam Const General: cooperative, anxious and other (Agitated) Nutritional Appearance: average body habitus Orientation: alert, awake and oriented x3 HENMT Mouth: moist mucous membranes Resp Effort & Inspection: normal respiratory effort, able to speak in complete sentences and no respiratory distress Auscultation: clear to auscultation bilaterally Cardio Rate: regular rate Rhythm: regular rhythm Heart Sounds: S1 normal and S2 normal Skin General skin exam: no rashes or lesions noted Neuro General: patient alert, patient awake, patient oriented x3, moves all ex tremities, no focal motor deficits and not confused Psych Appearance: disheveled Speech and Movement: agitated Mood: anxious mood Affect: sad Attitude: cooperative Thought Process: normal Thought Content: normal Insight: insight good Judgment: judgment good Course Vital Signs Vital signs: Vital Signs Temperature 37.1 C 01/13/24 09:35 Pulse 93 H 01/13/24 09:35 Respiratory Rate 20 01/13/24 09:35 Blood Pressure 180/106 H 01/13/24 09:35 Pulse Oximetry 99 01/13/24 09:35 Temperature 37.1 C 01/13/24 09:35 Temperature Source Skin 01/13/24 09:35 Pulse 93 H 01/13/24 09:35 Respiratory Rate 20 01/13/24 10:02 Respiratory Effort Normal 01/13/24 10:02 Respiratory Depth Normal 01/13/24 10:02 Respiratory Pattern Normal 01/13/24 10:02 Blood Pressure 180/106 H 01/13/24 09:35 Blood Pressure Position Sitting 01/13/24 09:35 Pulse Oximetry 99 01/13/24 09:35 Oxygen Delivery Method Room Air 01/13/24 10:02 Oxygen Flow Rate 0 01/13/24 10:02 Pain Level 0 01/13/24 10:55 Lab/Test Results Lab/Test Results: Laboratory Tests Range/Units 01/13/24 10:25 WBC (4.4-10.8) 10^3/uL 12.27 H RBC (4.36-5.78) 10^6/uL 5.31 Hgb (13.5-17.5) g/dL 15.7 Hct (40.0-50.0) % 44.5 MCV (80-95) fL 84 MCH (27.0-33.0) pg 29.6 MCHC (32.0-36.0) % 35.3 RDW (11.8-14.1) % 12.0 Plt Count (130-400) 10^3/uL 284 MPV (8.0-11.0) fL 9.0 Immature Gran % 0.6 Neutrophils % 80.7 Lymphocytes % 12.1 Monocytes % 6.4 Eosinophils % 0.0 Basophils % 0.2 Nucleated RBC % (0.0-0.3) % 0.0 Absolute Neutrophils (1.2-6.7) 10^3/uL 9.90 H Absolute Lymphocytes (1.2-3.4) 10^3/uL 1.48 Absolute Monocytes (0.1-0.8) 10^3/uL 0.79 Absolute Eosinophils (0.0-0.7) 10^3/uL 0.00 Absolute Basophils (0.0-0.2) 10^3/uL 0.02 Sodium (136-145) mmol/L 145 Potassium (3.5-5.1) mmol/L 3.4 L Chloride (98-107) mmol/L 106 Carbon Dioxide (21.0-32.0) mmol/L 31.8 Anion Gap (3-11) mmol/L 7.2 BUN (7-18) mg/dL 16 Creatinine (0.70-1.30) mg/dL 0.9 Est GFR (CKD-EPI 2020) (mL/min/1.73m2) 109.36 Glucose (74-106) mg/dL 143 H Calcium (8.5-10.1) mg/dL 9.9 Magnesium (1.8-2.4) mg/dL 2.3 Total Bilirubin (0.2-1.0) mg/dL 0.4 AST (15-37) U/L 20 ALT (16-63) U/L 39 Alkaline Phosphatase (46-116) U/L 104 Total Protein (6.4-8.2) g/dL 8.0 Albumin (3.4-5.0) g/dL 4.2 Lipase (16-77) U/L 19 Medical Decision Making Patient presenting to the emergency department for chief complaint of methadone withdrawal. Patient states that he was going to the clinic for years and had started tapering down from 200 mg. Approximately 2 months ago he decided he wanted to be off of this and attempted to get off the med but then started buying methadone on the streets. He was taking 95 mg daily but his last dose was 5 days ago which caused him to start having significant withdrawals 24 hours later and has continued through the weekend. Patient did go to the methadone clinic this morning and attempted to restart treatment and to get a dose to help with his withdrawals but they would not give it to him given that he had stopped going 2 months ago. Patient denies any other symptoms, denies chest pain. Physical exam shows significant agitation and general ill appearance but nontoxic, no emergent distress, no focal neurological abnormality. Will plan on checking patient's EKG and labs and dosing and with his methadone given that the clinic had already called and informed us of patient and that they are getting him started on the medication tomorrow. Reviewed patient's labs and CBC does show a leukocytosis which I feel may be reactionary to withdrawal symptoms, potassium slightly low at 3.4 but will still orally replete labs otherwise nondiagnostic. Please see physician interpretation for full interpretation of EKG but patient is in sinus rhythm, QT within normal range, otherwise nondiagnostic. Patient given 100 mg of methadone along with 1 L IV fluids. Patient reassessed after fluids completed and stated significant improvement of overall symptoms. Do not feel that any further investigation or workup is needed. Patient states clear understanding to go to the clinic tomorrow for resumption of his normal dosing along with long-term plan for tapering off medication if he would like to be off this. After discussion of diagnosis and plan of care patient has no further needs, questions, or concerns and states clear understanding to return to the emergency department for any worsening symptoms. This documentation was generated using [employer] dictation system, please disregard any oddities of phrase or misspellings. Quality:SDOH Health Related Social Needs: Health related social needs risk of homeless PFSH All Active Problems (Updated 01/13/24 @ 12:03 by Dillon Stanton NP) Methadone withdrawal (Acute) Closed right tibial fracture (Acute ~09/01/22) No-show for appointment (Acute) Separation of left acromioclavicular joint (Acute ~08/2022) Medical History Constipation Back pain History of head injury Attention deficit History of testicular mass Paresthesia of both hands Social History Smoking/Tobacco Use Status: Current every day Tobacco Type: e-cigarettes Smoking risk assessment performed?: Yes Alcohol Intake: current Alcohol Intake frequency: a few times a month Alcohol type: beer Drug use: Daily Substance use type: marijuana and opiates Details: using methadone off the streets, last use was 4 days ago. Has appt @ [facility] tomorrow for dosing Current gender identity: male Do you feel safe at home: Yes Do you feel safe in your relationship?: Yes
[2024-01-13 12:27] VITALS: BP 170/90; PULSE 78; RESP 16; O2SAT 97
--- NOTE | 2024-01-14 09:33 | NUR.NOTE ---
Accessed Pt chart to print the medication, Methadone, order for [facility]. They faxed an authorization to release the information. I faxed the order sheet for the Methadone that the Nurse Practitioner gave him here in the Emergency Room.
== END 2024-01-13 12:32 | disposition home or self-care (01) ==
LOC: ER 12:31
PROVIDERS: Emergency Provider Nurse Practitioner Family; PCP Nurse Practitioner Family
DX: F11.13 Opioid abuse with withdrawal (principal); F17.290 Nicotine dependence, other tobacco product, uncomplicated
CPT/HCPCS: 80053; 83690; 93005; 96360; 99284; 83735; 85025; 93010